=== PATIENT | female | born 2000 | race African-American/Black ===

== ENCOUNTER 2022-11-06 19:51 | Emergency (ER) | payer OTHER, MEDICAID ==
[~2022-11-06] VITALS: Ht 165.1 cm; Wt 75.0 kg
[2022-11-06] MEDS ORDERED: LIDOCAINE 5% PATCH TOP SCH (20:45)
[2022-11-06] MEDS ORDERED: ALBU6.7H3 INH (23:07)
[2022-11-06 23:20] VITALS: BP 130/78
== END 2022-11-06 23:10 | disposition home or self-care (01) ==
LOC: ER 20:20
DX: R07.81 Pleurodynia (principal); R06.02 Shortness of breath; J45.909 Unspecified asthma, uncomplicated
CPT/HCPCS: 71101; 99283